=== PATIENT | female | born 1995 | race Two or more races ===

== ENCOUNTER 2024-03-07 15:48 | Emergency (ER) | payer MEDICAID, OTHER ==
[~2024-03-07] VITALS: Ht 157.5 cm; Wt 89.5 kg
[2024-03-07 16:05] VITALS: BP 124/61; PULSE 82; RESP 20; O2SAT 98
== END 2024-03-07 18:33 | disposition left against medical advice (07) ==
LOC: ER 15:48
DX: M79.641 Pain in right hand (principal); M79.642 Pain in left hand; Z53.21 Procedure and treatment not carried out due to patient leaving prior to being seen by health care provider; X58.XXXA Exposure to other specified factors, initial encounter; Y93.89 Activity, other specified; Y92.89 Other specified places as the place of occurrence of the external cause; Y99.8 Other external cause status